=== PATIENT | female | born 1970 | race Caucasian/White ===

== ENCOUNTER 2019-10-02 11:20 | Emergency (ER) | payer BC ==
[~2019-10-02] VITALS: Ht 157.5 cm; Wt 70.0 kg
[2019-10-02 11:28] VITALS: Ht 157.5 cm; Wt 70.0 kg
[2019-10-02 13:08] LABS: BASOPHIL % 0.2 % (0-2); CALCIUM 8.3 mg/dL (8.5-10.1); CARBON DIOXIDE 27.4 mmol/L (21-32); CHLORIDE SERUM 103 mmol/L (98-107); CREATININE SERUM 0.9 mg/dL (0.6-1.0); GFR1 > 60 mL/min; GLUCOSE SERUM 98 mg/dL (74-106); POTASSIUM SERUM 3.1 mmol/L (3.5-5.1); RED CELL DISTRIBUTION WIDTH 13.8 % (11.5-14.5); SODIUM SERUM 140 mmol/L (136-145)
[2019-10-02 13:12] LABS: ALBUMIN 3.7 g/dL (3.4-5.0); ALKALINE PHOSPHATASE 89 U/L (46-116); ALT/SGPT 22 U/L (14-59); AST/SGOT 22 U/L (15-37); BILIRUBIN TOTAL 0.4 mg/dL (0.20-1.00); LIPASE 43 IU/L (73-393); TOTAL PROTEIN, SERUM 7.7 g/dL (6.4-8.2)
[2019-10-02 13:29] LABS: PLATELET COUNT 425 x10^3mcL (130-400)
[2019-10-02 16:42] VITALS: BP 110/57
== END 2019-10-02 16:42 | disposition home or self-care (01) ==
LOC: ED 11:20
PROVIDERS: Student in an Organized Health Care Education/Training Program
DX: R10.30 Lower abdominal pain, unspecified (principal)
CPT/HCPCS: J1885; J2405; J7030